=== PATIENT | female | born 1965 | race Two or more races ===

== ENCOUNTER → 2018-01-05 10:48 | Outpatient (CLI) | payer OTHER | END | disposition home or self-care (01) | LOC: LAB 10:48 | DX: R10.2 Pelvic and perineal pain (principal) ==

== ENCOUNTER 2018-01-05 12:30 | Outpatient (CLI) | payer OTHER | END 2018-01-05 12:34 | disposition home or self-care (01) | LOC: MAMO-SONO 12:30 | DX: Z12.31 Encounter for screening mammogram for malignant neoplasm of breast (principal); R10.2 Pelvic and perineal pain ==

== ENCOUNTER 2018-08-31 08:56 | Emergency (ER) | payer OTHER ==
[~2018-08-31] VITALS: Ht 160 cm; Wt 68.0 kg
== END 2018-08-31 12:36 | disposition home or self-care (01) ==
LOC: ER 08:56
DX: K29.70 Gastritis, unspecified, without bleeding (principal); R10.13 Epigastric pain

== ENCOUNTER 2019-04-25 16:51 | Emergency (ER) | payer OTHER ==
[~2019-04-25] VITALS: Ht 165.1 cm; Wt 69.9 kg
== END 2019-04-25 20:39 | disposition home or self-care (01) ==
LOC: ER 16:51
DX: S80.02XA Contusion of left knee, initial encounter (principal); W18.39XA Other fall on same level, initial encounter; Y93.89 Activity, other specified; Y92.89 Other specified places as the place of occurrence of the external cause; Y99.8 Other external cause status

== ENCOUNTER 2023-01-06 18:34 | Emergency (ER) | payer OTHER ==
[~2023-01-06] VITALS: Ht 162.6 cm; Wt 72.6 kg
[2023-01-06 20:07] LABS: HEMATOCRIT 44.3 % (36.0-45.00); HEMOGLOBIN 14.1 g/dL (12.0-15.00); MEAN CELL VOLUME 79.8 fL (80.00-100.00); MEAN CORPUSCULAR HEMOGLOBIN 25.4 pg (27.00-32.0); MEAN CORPUSCULAR HGB CONC 31.8 g/dl (32.0-36.0); PLATELET COUNT 212 K/uL (150-450); RED BLOOD COUNT 5.55 M/uL (4.00-6.00); RED CELL DISTRIBUTION WIDTH 13.9 % (11.5-14.5)
[2023-01-06 20:36] LABS: INR 1.03; PROTHROMBIN TIME 10.8 SECONDS (9.0-11.5)
[2023-01-06 20:41] LABS: CALCIUM 9.6 mg/dL (8.5-10.1); CREATININE SERUM 0.78 mg/dL (0.55-1.02); GFR 76.68; POTASSIUM 5.33 mEq/L (3.5-5.1)
[2023-01-06 21:45] LABS: URINE APPEARANCE Clear; URINE BILIRRUBIN Negative (NEGATIVE); URINE BLOOD Negative; URINE COLOR Yellow; URINE GLUCOSE Negative (NEGATIVE); URINE LEUKOCYTE Trace; URINE NITRATE Negative; URINE PROTEIN Negative (NEGATIVE); URINE UROBILINOGEN 0.2 E.U./dl
[2023-01-06 21:50] LABS: URINE BACTERIA 265.6 uL (0.0-1933); URINE EPITHELIAL CELLS 6.3 uL (0.0-38.8); URINE RBC 2.2 uL (0.0-20.8); URINE WBC 30.2 uL (0.0-23.2)
[2023-01-06] MEDS ORDERED: ANTIVERT25 M2 PO (22:34)
== END 2023-01-06 22:41 | disposition home or self-care (01) ==
LOC: ER 18:35
PROVIDERS: General Practice
DX: R42 Dizziness and giddiness (principal); R11.10 Vomiting, unspecified

== ENCOUNTER 2023-02-17 19:45 | Emergency (ER) | payer OTHER ==
[~2023-02-17] VITALS: Ht 165.1 cm; Wt 69.9 kg
[~2023-02-17 19:45] MED LIST: ANTIVERT25 M2 PO
[2023-02-17 20:50] LABS: HEMATOCRIT 38.8 % (36.0-45.00); HEMOGLOBIN 13.1 g/dL (12.0-15.00); MEAN CELL VOLUME 78.3 fL (80.00-100.00); MEAN CORPUSCULAR HEMOGLOBIN 26.4 pg (27.00-32.0); MEAN CORPUSCULAR HGB CONC 33.7 g/dl (32.0-36.0); PLATELET COUNT 185 K/uL (150-450); RED BLOOD COUNT 4.96 M/uL (4.00-6.00); RED CELL DISTRIBUTION WIDTH 14.4 % (11.5-14.5)
== END 2023-02-17 21:39 | disposition home or self-care (01) ==
LOC: ER 19:46
PROVIDERS: General Practice
DX: J06.9 Acute upper respiratory infection, unspecified (principal); Z20.822 Contact with and (suspected) exposure to COVID-19